=== PATIENT | male | born 1990 | race American Indian/Alaskan Native ===

== ENCOUNTER 2017-12-06 21:27 | Emergency (ER) | payer SELFPAY ==
[2017-12-06] MEDS ORDERED: ASPIRIN PO ONE (22:01)
[2017-12-06 22:15] LABS: Basophils % (Auto) 0.4 % (0.0-1.8); Eosinophils % (Auto) 0.2 % (0.0-4.3); Hematocrit 46.6 % (35.5-45.6); Hemoglobin 15.6 gm/dl (11.8-15.2); Lymphocytes # (Auto) 1.1 K/mm3 (1.2-5.4); Lymphocytes % (Auto) 12.5 % (13.4-35.0); Mean Corpuscular HGB Conc 34 % (32-34); Mean Corpuscular Hemoglobin 30 pg (28-32); Mean Corpuscular Volume 88 fl (84-94); Monocytes # (Auto) 1.4 K/mm3 (0.0-0.8); Monocytes % (Auto) 15.4 % (0.0-7.3); Platelet Count 252 K/mm3 (140-440); Red Blood Count 5.27 M/mm3 (3.65-5.03); Red Cell Distribution Width 14.4 % (13.2-15.2)
[2017-12-06 22:28] LABS: BUN/Creatinine Ratio 9; Blood Urea Nitrogen 8 mg/dL (9-20); Calcium 9.3 mg/dL (8.4-10.2); Hemolysis Index 6
[2017-12-07] MEDS ORDERED: NORVASC PO ONE (06:26)
[2017-12-07 06:37] VITALS: BP 146/92
--- NOTE | 2017-12-07 06:42 | Emergency Department Report ---
ED Chest Pain HPI - General Chief Complaint: Chest Pain Stated Complaint: HIGH BP/CHEST PAIN Time Seen by Provider: 12/07/17 06:11 Source: patient Mode of arrival: Ambulatory Limitations: No Limitations - History of Present Illness Initial Comments: 27-year-old male a past medical history recently diagnosed high blood pressure presents to the hospital with complaints of lightheadedness and chest pain today. Patient went to a [facility] ED with the same symptoms. He was diagnosed with pinkeye of the right eye, hypertension, and given a topical antibiotics and muscle relaxant for his chest pain. Patient presents here concerned because he did not receive a prescription for blood pressure medication. Patient has been experiencing left upper chest pain described as a tightness, intermittent, worse with movement and lying in certain positions. He denies shortness of breath, nausea, vomiting, or diaphoresis. Patient also denies headache. He denies tobacco use, family history of CAD, or cocaine abuse. Patient states he did receive blood work to evaluate his heart while at the previous hospital. Severity scale (0 -10): 4 - Related Data Previous Rx's Medication Instructions Recorded Last Taken Type amLODIPine [Norvasc] 5 mg PO DAILY #30 tab 12/07/17 Unknown Rx Allergies Allergy/AdvReac Type Severity Reaction Status Date / Time No Known Allergies Allergy Unverified 12/06/17 22:01 Heart Score - HEART Score History: Slightly suspicious EKG: Normal Age: < 45 Risk factors: 1-2 risk factors Troponin: < normal limit HEART Score: 1 ED Review of Systems ROS: Stated complaint: HIGH BP/CHEST PAIN Other details as noted in HPI Comment: All other systems reviewed and negative ED Past Medical Hx - Past Medical History Hx Hypertension: Yes - Surgical History Past Surgical History?: Yes Additional Surgical History: LEFT JAW - Social History Smoking Status: Current Every Day Smoker Substance Use Type: None - Medications Home Medications: Home Medications Medication Instructions Recorded Confirmed Last Taken Type amLODIPine [Norvasc] 5 mg PO DAILY #30 tab 12/07/17 Unknown Rx ED Physical Exam - General Limitations: No Limitations - Other Other exam information: General: No limitations, patient is alert in no acute distress Head exam: Atraumatic, normocephalic Eyes exam: Right eye conjunctival injections. ENT: Moist mucous membrane, normal oropharynx Neck exam: Normal inspection, full range of motion, no meningismus nontender Respiratory exam: Clear to auscultation bilateral, no wheezes, rales, crackles Cardiovascular: Normal rate and rhythm, normal heart sounds. Patient pain-free at this time without chest wall tenderness Abdomen: Soft, nondistended, and nontender, with normal bowel sounds, no rebound, or guarding Extremity: Full range of motion normal inspection no deformity, no calf tenderness, no edema Back: Normal Inspection, full range of motion, no tenderness Neurologic: Alert, oriented x3, cranial nerves intact, no motor or sensory deficit Psychiatric: normal affect, normal mood Skin: Warm, dry, intact ED Course Vital Signs 12/06/17 12/07/17 12/07/17 21:57 00:45 03:28 Temperature 98.9 F 98.2 F 98.3 F Pulse Rate 76 85 96 H Respiratory 18 18 22 Rate Blood Pressure 166/101 158/90 Blood Pressure 153/94 [Left] O2 Sat by Pulse 100 100 99 Oximetry 12/07/17 12/07/17 12/07/17 04:00 05:00 06:00 Temperature Pulse Rate 80 107 H 88 Respiratory 17 22 17 Rate Blood Pressure 153/94 160/89 Blood Pressure 156/85 [Left] O2 Sat by Pulse 100 98 98 Oximetry 12/07/17 06:36 Temperature Pulse Rate 73 Respiratory Rate Blood Pressure 146/92 Blood Pressure [Left] O2 Sat by Pulse Oximetry - Reevaluation(s) Reevaluation #1: 12/07/17 06:41 Patient provided Norvasc 5 mg CHRISTAL score - Christal Score Age > 65: (0) No Aspirin use within the Past 7 Days: (0) No 3 or more CAD Risk Factors: (0) No 2 or more Angina events in past 24 hrs: (0) No Known CAD with more than 50% Stenosis: (0) No Elevated Cardiac Markers: (0) No ST Deviation Greater than 0.5mm: (0) No CHRISTAL Score: 0 ED Medical Decision Making - Lab Data Result diagrams: 12/06/17 22:02 12/06/17 22:02 Lab Results 12/06/17 12/06/17 12/07/17 Range/Units 22:02 22:02 01:09 WBC 8.8 (4.5-11.0) K/mm3 RBC 5.27 H (3.65-5.03) M/mm3 Hgb 15.6 H (11.8-15.2) gm/dl Hct 46.6 H (35.5-45.6) % MCV 88 (84-94) fl MCH 30 (28-32) pg MCHC 34 (32-34) % RDW 14.4 (13.2-15.2) % Plt Count 252 (140-440) K/mm3 Lymph % (Auto) 12.5 L (13.4-35.0) % [place] % (Auto) 15.4 H (0.0-7.3) % Eos % (Auto) 0.2 (0.0-4.3) % Baso % (Auto) 0.4 (0.0-1.8) % Lymph # 1.1 L (1.2-5.4) K/mm3 [place] # 1.4 H (0.0-0.8) K/mm3 Eos # 0.0 (0.0-0.4) K/mm3 Baso # 0.0 (0.0-0.1) K/mm3 Seg Neutrophils % 71.5 H (40.0-70.0) % Seg Neutrophils # 6.3 (1.8-7.7) K/mm3 Sodium 140 (137-145) mmol/L Potassium 3.6 (3.6-5.0) mmol/L Chloride 99.8 (98-107) mmol/L Carbon Dioxide 25 (22-30) mmol/L Anion Gap 19 mmol/L BUN 8 L (9-20) mg/dL Creatinine 0.9 (0.8-1.5) mg/dL Estimated GFR > 60 ml/min BUN/Creatinine Ratio 9 % Glucose 93 (75-100) mg/dL Calcium 9.3 (8.4-10.2) mg/dL Troponin T < 0.010 < 0.010 (0.00-0.029) ng/mL 12/07/17 Range/Units 04:12 WBC (4.5-11.0) K/mm3 RBC (3.65-5.03) M/mm3 Hgb (11.8-15.2) gm/dl Hct (35.5-45.6) % MCV (84-94) fl MCH (28-32) pg MCHC (32-34) % RDW (13.2-15.2) % Plt Count (140-440) K/mm3 Lymph % (Auto) (13.4-35.0) % [place] % (Auto) (0.0-7.3) % Eos % (Auto) (0.0-4.3) % Baso % (Auto) (0.0-1.8) % Lymph # (1.2-5.4) K/mm3 [place] # (0.0-0.8) K/mm3 Eos # (0.0-0.4) K/mm3 Baso # (0.0-0.1) K/mm3 Seg Neutrophils % (40.0-70.0) % Seg Neutrophils # (1.8-7.7) K/mm3 Sodium (137-145) mmol/L Potassium (3.6-5.0) mmol/L Chloride (98-107) mmol/L Carbon Dioxide (22-30) mmol/L Anion Gap mmol/L BUN (9-20) mg/dL Creatinine (0.8-1.5) mg/dL Estimated GFR ml/min BUN/Creatinine Ratio % Glucose (75-100) mg/dL Calcium (8.4-10.2) mg/dL Troponin T < 0.010 (0.00-0.029) ng/mL - EKG Data -: EKG Interpreted by Fl EKG shows normal: sinus rhythm, axis (qrs -23), QRS complexes (qrsd 84), ST-T waves (no stemi/t inv) Rate: normal (71) - EKG Data 12/07/17 06:42 repeat ekg at 1:06am, no acute changes - Medical Decision Making Chest pain appears to be musculoskeletal, described as tightness worse with movement and certain positions. Lack of associated symptoms. Cardiac enzymes negative, EKG without ST elevation [place]. Patient has been prescribed muscle relaxant by the Blood pressure elevated without signs of hypertensive emergency. Norvasc 5 mg prescribed with first dose in the ED Pinkeye: Right eye erythema. Patient has been describing and evaluated at previous ER The encouraged to follow up with primary care doctor for further treatment - Differential Diagnosis atypical chest pain, msk chest pain, PE, [place], Critical Care Time: No Critical care attestation.: If time is entered above; I have spent that time in minutes in the direct care of this critically ill patient, excluding procedure time. ED Disposition Clinical Impression: Hypertension, [place] eye, Chest pain, musculoskeletal Disposition: DC-01 TO HOME OR SELFCARE Is pt being admited?: No Does the pt Need Aspirin: No Condition: Stable Instructions: Hypertension (ED), Chest Pain (ED), Conjunctivitis (ED) Additional Instructions: Take the medication as prescribed. Follow-up with the clinic provided or with a primary care doctor of your choice. Return if symptoms worsen as indicated by your discharge instructions Prescriptions: amLODIPine [Norvasc] 5 mg PO DAILY #30 tab Referrals: [facility] [Provider Group] - 3-5 Days Time of Disposition: 06:45
== END 2017-12-07 06:57 | disposition home or self-care (01) ==
LOC: ED 21:27
DX: R07.89 Other chest pain (principal); R42 Dizziness and giddiness; H10.021 Other mucopurulent conjunctivitis, right eye; M79.1 Myalgia; I10 Essential (primary) hypertension; F17.200 Nicotine dependence, unspecified, uncomplicated
CPT/HCPCS: 36415; 80048; 84484; 85025; 93005; 93010; 99284